=== PATIENT | female | born 1980 | race Caucasian/White ===

== ENCOUNTER 2018-03-26 14:52 | Inpatient (IN) | payer OTHER ==
[~2018-03-26] VITALS: Ht 162.6 cm; Wt 67.1 kg
[2018-05-06] MEDS ORDERED: OXYC1TAB9 PO (15:07)
[2018-05-06] MEDS ORDERED: INTESTINEX680 M1 PO (15:07)
[2018-05-06] MEDS ORDERED: PROTONIX40 MG PO (15:08)
== END 2018-05-06 17:31 | disposition home or self-care (01) | DRG 330 ==
LOC: SURH 05-03 07:00 → SURG 05-03 07:59 → O/R 05-03 07:59 → SURH 05-03 07:59 → SURG 05-03 17:12 → SURH 05-04 12:02
PROVIDERS: ADMIT Surgery
PROC: 07TC4ZZ Resection of Pelvis Lymphatic, Percutaneous Endoscopic Approach (ICD-10-PCS; 2018-05-03)
PROC: 0DTF4ZZ Resection of Right Large Intestine, Percutaneous Endoscopic Approach (ICD-10-PCS; principal; 2018-05-03 07:00)
DX: K57.32 Diverticulitis of large intestine without perforation or abscess without bleeding (principal); D68.0 Von Willebrand disease; D62 Acute posthemorrhagic anemia

== ENCOUNTER 2018-07-23 14:47 | Emergency (ER) | payer OTHER ==
[~2018-07-23] VITALS: Ht 162.6 cm; Wt 67.1 kg
[~2018-07-23 14:47] MED LIST: INTESTINEX680 M1 PO; OXYC1TAB9 PO; PROTONIX40 MG PO
== END 2018-07-23 18:45 | disposition home or self-care (01) ==
LOC: ER 14:47
DX: R14.3 Flatulence (principal); R10.31 Right lower quadrant pain

== ENCOUNTER 2019-03-22 09:30 | Day surgery (SDC) | payer OTHER | END 2019-03-22 13:15 | disposition home or self-care (01) | LOC: AMB-ENDOS 09:30 | DX: D12.8 Benign neoplasm of rectum (principal); K64.8 Other hemorrhoids ==

== ENCOUNTER 2020-02-06 10:22 | Outpatient (CLI) | payer OTHER | END 2020-02-06 11:21 | disposition home or self-care (01) | LOC: NST 10:22 | PROVIDERS: ATTEND Obstetrics & Gynecology | DX: Z34.82 Encounter for supervision of other normal pregnancy, second trimester (principal) ==

== ENCOUNTER 2020-06-01 15:30 | Inpatient (IN) | payer OTHER ==
[~2020-06-01] VITALS: Ht 162.6 cm; Wt 81.2 kg
[2020-06-08] MEDS ORDERED: PEPCID AC20 MG PO (16:40)
[2020-06-08] MEDS ORDERED: PRENATAL TABLE1 EAC3 PO (16:40)
[2020-06-22] MEDS ORDERED: [UNRECOGNIZED DRUG - OTHER] (19:49)
== END 2020-06-09 09:59 | disposition home or self-care (01) | DRG 833 ==
LOC: LDR 06-08 15:07 → OB/GYN 06-20 15:30
PROVIDERS: ADMIT Obstetrics & Gynecology; ATTEND Obstetrics & Gynecology
PROC: 4A1HXFZ Monitoring of Products of Conception, Cardiac Rhythm, External Approach (ICD-10-PCS; principal; 2020-06-08)
DX: O13.3 Gestational [pregnancy-induced] hypertension without significant proteinuria, third trimester (principal); Z20.822 Contact with and (suspected) exposure to COVID-19; Z3A.38 38 weeks gestation of pregnancy

== ENCOUNTER 2020-06-14 11:57 | Inpatient (IN) | payer OTHER ==
[~2020-06-14] VITALS: Ht 162.6 cm; Wt 81.6 kg
[~2020-06-14 11:57] MED LIST changes: +PEPCID AC20 MG PO; +PRENATAL TABLE1 EAC3 PO
[2020-06-14] MEDS ORDERED: HYDROCORT-PRAMO30 G1 (14:19)
[2020-06-22] MEDS ORDERED: [UNRECOGNIZED DRUG - OTHER] (19:49)
== END 2020-06-17 11:52 | disposition home or self-care (01) | DRG 788 ==
LOC: LDR 11:57 → SURG-SUITE 11:57
PROVIDERS: ADMIT Obstetrics & Gynecology; ATTEND Obstetrics & Gynecology
PROC: 10D00Z1 Extraction of Products of Conception, Low, Open Approach (ICD-10-PCS; principal; 2020-06-14)
PROC: 3E0P7VZ Introduction of Hormone into Female Reproductive, Via Natural or Artificial Opening (ICD-10-PCS; 2020-06-14)
PROC: 4A1HXFZ Monitoring of Products of Conception, Cardiac Rhythm, External Approach (ICD-10-PCS; 2020-06-14)
DX: O76 Abnormality in fetal heart rate and rhythm complicating labor and delivery (principal); O13.4 Gestational [pregnancy-induced] hypertension without significant proteinuria, complicating childbirth; Z37.0 Single live birth; Z3A.39 39 weeks gestation of pregnancy; Z20.822 Contact with and (suspected) exposure to COVID-19

== ENCOUNTER → 2020-06-22 | Emergency (ER) | payer OTHER ==
[~2020-06-22] VITALS: Ht 162.6 cm; Wt 81.6 kg
[~2020-06-22] MED LIST changes: +HYDROCORT-PRAMO30 G1; +[UNRECOGNIZED DRUG - OTHER]
== END | disposition home or self-care (01) ==
LOC: ER 19:15
DX: O13.5 Gestational [pregnancy-induced] hypertension without significant proteinuria, complicating the puerperium (principal)